=== PATIENT | female | born 1955 | race Caucasian/White ===

== ENCOUNTER 2021-12-27 14:32 | Outpatient (CLI) | payer OTHER, SELFPAY ==
--- NOTE | 2021-12-27 15:00 | CRLHL7_ITS ---
For Patients: As a result of the Century Cures Act, medical imaging exams and procedure reports are released immediately into your electronic medical record. You may view this report before your referring provider. If you have questions, please contact your health care provider. BILATERAL SCREENING MAMMOGRAM WITH COMPUTER-AIDED DETECTION AND TOMOSYNTHESIS TECHNIQUE: CC and MLO views were obtained. These mammographic images have been obtained using full-field digital technique. These mammographic images were interpreted with the benefit of computer-aided detection. Breast Tomosynthesis was used in this interpretation. COMPARISON FILM: 11/14/20, 12/01/19, 11/04/18. FINDINGS: There are scattered areas of fibroglandular density IMPRESSION: There is no radiographic evidence for malignancy. ASSESSMENT: BI-RADS Category 1: Negative RECOMMENDATION: Routine screening mammogram in 1 year. A lay language report of this examination will be provided to the patient. Aashsih Maldonado M.D. Diagnostic Radiologist [email or web address] BRYAN/Dictated by: Aashish Maldonado MD @ 12/28/2021 8:46:00 AM (Electronically Signed)
== END 2021-12-27 14:33 | disposition home or self-care (01) ==
PROVIDERS: PCP Family Medicine; Visit Provider Family Medicine
DX: Z12.31 Encounter for screening mammogram for malignant neoplasm of breast (principal)
CPT/HCPCS: 77063; 77067

== ENCOUNTER 2022-06-19 08:57 | Outpatient (CLI) | payer MEDICARE, SELFPAY | END 2022-06-19 08:58 | disposition home or self-care (01) | PROVIDERS: PCP Family Medicine; Visit Provider Family Medicine | DX: Z00.00 Encounter for general adult medical examination without abnormal findings (principal); R10.12 Left upper quadrant pain; E78.5 Hyperlipidemia, unspecified; R53.83 Other fatigue; K76.9 Liver disease, unspecified; Z78.0 Asymptomatic menopausal state | CPT/HCPCS: 80053; 80061; 82150; 83690 ==

== ENCOUNTER 2022-07-01 08:24 | Outpatient (CLI) | payer MEDICARE, SELFPAY ==
--- NOTE | 2022-07-01 09:00 | CRLHL7_ITS ---
For Patients: As a result of the Century Cures Act, medical imaging exams and procedure reports are released immediately into your electronic medical record. You may view this report before your referring provider. If you have questions, please contact your health care provider. Indication: L. upper quad pain, L. kidney cyst, Liver lesion Technique: Postcontrast CT abdomen and pelvis. 79 cc Isovue 370 intravenous contrast. Please note that all CT scans at this facility use dose modulation, iterative reconstruction, and/or weight-based dosing when appropriate to reduce radiation dose to as low as reasonably achievable. Comparison: 09/01/2019 Findings: The lung bases are clear. No free intraperitoneal air is noted. Benign 1 cm or less hypodensities throughout the liver similar. No suspicious intrahepatic mass. The gallbladder is absent. No biliary obstruction. The spleen is normal. Normal pancreas. Adrenal glands are unremarkable. There is a stable cyst within the upper pole of the left kidney measuring 1.6 cm. No hydronephrosis. No retroperitoneal or mesenteric adenopathy. Mild vascular calcifications. No bowel obstruction. Small hiatal hernia measuring 1.9 cm. The small bowel is unremarkable. Colonic diverticulosis. No diverticulitis. Bladder normal. Uterus unremarkable. No pelvic mass. There is a 2.1 centimeter right ovarian cyst. No pelvic or inguinal adenopathy. No abscess. No fracture. Multilevel degenerative disc disease and facet degeneration. Impression: Stable benign low-density lesions throughout the liver and stable left renal cortical cyst. Sigmoid diverticulosis. No diverticulitis. 2.1 cm right ovarian cyst which could be followed up by ultrasound in 1 year. Please note that all CT scans at this facility use dose modulation, iterative reconstruction, and/or weight-based dosing when appropriate to reduce radiation dose to as low as reasonably achievable. Dictated by Aashish Maldonado MD @ 07/01/2022 11:00:52 AM (Electronically Signed)
== END 2022-07-01 08:25 | disposition home or self-care (01) ==
PROVIDERS: PCP Family Medicine; Visit Provider Family Medicine
DX: R10.12 Left upper quadrant pain (principal); K57.30 Diverticulosis of large intestine without perforation or abscess without bleeding; N83.201 Unspecified ovarian cyst, right side; K76.9 Liver disease, unspecified; N28.1 Cyst of kidney, acquired
CPT/HCPCS: 74177; Q9967

== ENCOUNTER 2022-07-10 14:34 | Outpatient (CLI) | payer MEDICARE, SELFPAY ==
--- NOTE | 2022-07-10 15:00 | CRLHL7_ITS ---
For Patients: As a result of the Century Cures Act, medical imaging exams and procedure reports are released immediately into your electronic medical record. You may view this report before your referring provider. If you have questions, please contact your health care provider. DXA BONE MINERAL DENSITY STUDY, 07/10/2022 Reason for exam: Screening. Current height (inches): 64.0 Weight (lbs.): 155.0 Menopause age: 54 Ethnicity: White 1. Have you had a previous hip or vertebral fracture? No. 2. Have you had any fractures during your adult life which did not result from significant trauma (e.g., auto accident)? No. 3. Did either of your parents have a hip fracture? No. 4. Do you smoke? No. 5. Have you ever taken Glucocorticoids? No. 6. Do you have rheumatoid arthritis? No. 7. Do you have secondary osteoporosis? No. 8. Do you drink 3 or more alcoholic drinks per day? No. 9. Are you being treated for osteoporosis? No. 10. Have you ever taken any of the following medications: Actonel, Evista, Fosamax, Miacalcin, Reclast, Boniva, Forteo, HRT (i.e., estrogen/hormone therapy), Protelos, Prolia, Vitamin D, Calcium, other ??? please specify. ANSWER: Yes; vitamin D, calcium. 11. Do you have any of the following medical conditions: Anorexia or bulimia, asthma or emphysema, end stage renal disease, hyperparathyroidism, any seizure disorders, cancer, inflammatory bowel diseases, hysterectomy, other ??? please specify. ANSWER: No. 12. What was your maximum height (inches)? 65. 13. Do you perform weightbearing exercise regularly? No. 14. Do you regularly consume dairy products? Yes. 15. Do you drink caffeinated beverages? Yes. 16. At what age did your period start? 15. 17. Are you premenopausal? No. 18. How many full-term pregnancies have you had? 2. 19. Have you ever missed your period for more than 6 months in a row (not including or menopause)? No. TECHNIQUE: Bone mineral density study was performed using the [employer]. FINDINGS: The results of the study expressed as bone mineral density (BMD) are as follows: Lumbar Spine L1, L3 to L4: BMD: 1.048 g/cm2. T-score: 0.0. Z-score: 1.8. Neck Left: BMD: 0.714 g/cm2. T-score: -1.2. Z-score: 0.3. Right: BMD: 0.691 g/cm2. T-score: -1.4. Z-score: 0.1. Total Left: BMD: 0.999 g/cm2. T-score: 0.5. Z-score: 1.7. Right: BMD: 0.897 g/cm2. T-score: -0.4. Z-score: 0.9. IMPRESSION: Osteopenia. FRAX 10-year Fracture Risk Major Osteoporotic Fracture: 8.7% Hip Fracture: 0.9% Reported Risk Factors: [place] () Neck BMD = 0.691, BMI = 26.6 RAYNE POLK M.D. Diagnostic/Breast Radiologist [email or web address] Transcribed: 6:[address]/Dictated by: Rayne Polk MD @ 07/10/2022 3:29:00 PM (Electronically Signed)
== END 2022-07-10 14:35 | disposition home or self-care (01) ==
LOC: RAD 14:35
PROVIDERS: PCP Family Medicine; Visit Provider Family Medicine
DX: Z13.820 Encounter for screening for osteoporosis (principal); M85.89 Other specified disorders of bone density and structure, multiple sites; Z78.0 Asymptomatic menopausal state
CPT/HCPCS: 77080

== ENCOUNTER 2022-07-11 08:25 | Outpatient (CLI) | payer MEDICARE, SELFPAY ==
--- NOTE | 2022-07-11 08:45 | CRLHL7_ITS ---
For Patients: As a result of the Century Cures Act, medical imaging exams and procedure reports are released immediately into your electronic medical record. You may view this report before your referring provider. If you have questions, please contact your health care provider. INDICATION: Follow up right ovarian cysts. TECHNIQUE: Transabdominal and transvaginal pelvic ultrasound. COMPARISON: Correlation is made with an abdominopelvic CT July 01, 2022. FINDINGS: The uterus measures 6.0 x 3.3 x 1.9 cm. The endometrial stripe measures 2.6 mm transvaginally. The right ovary measures 4.8 x 3.8 x 2.7 cm. The right ovary contains 2 small well defined cysts 1 of which measures 1.3 x 1.1 x 1.7 cm and the other measuring 1.3 x 1.7 x 1.7 cm. The left ovary measures 2.3 x 1.2 x 1.7 cm. Blood flow is documented in the ovaries both arterial and venous. No free pelvic fluid. IMPRESSION: 1. Two small right ovarian follicular cysts. 2. No solid adnexal mass. 3. Endometrial stripe of 2.6 mm. Dictated by Mariano Mckoy MD @ 07/11/2022 10:28:44 AM (Electronically Signed)
== END 2022-07-11 08:26 | disposition home or self-care (01) ==
LOC: US 08:25
PROVIDERS: PCP Family Medicine; Visit Provider Family Medicine
DX: N83.201 Unspecified ovarian cyst, right side (principal); R93.89 Abnormal findings on diagnostic imaging of other specified body structures; Z13.820 Encounter for screening for osteoporosis; M85.89 Other specified disorders of bone density and structure, multiple sites
CPT/HCPCS: 76830; 76856; 93976

== ENCOUNTER 2022-07-16 10:30 | Outpatient (CLI) | payer MEDICARE, SELFPAY | END 2022-07-16 10:31 | disposition home or self-care (01) | LOC: NFLDREF 07-17 01:05 | PROVIDERS: PCP Family Medicine; Referring Provider Family Medicine; Visit Provider Family Medicine | DX: M85.80 Other specified disorders of bone density and structure, unspecified site (principal) | CPT/HCPCS: 82306 ==

== ENCOUNTER 2022-12-30 09:33 | Outpatient (CLI) | payer MEDICARE, SELFPAY ==
--- NOTE | 2022-12-30 10:15 | CRLHL7_ITS ---
For Patients: As a result of the Cures Act, medical imaging exams and procedure reports are released immediately into your electronic medical record. You may view this report before your referring provider. If you have questions, please contact your health care provider. BILATERAL SCREENING MAMMOGRAM WITH COMPUTER-AIDED DETECTION AND TOMOSYNTHESIS TECHNIQUE: CC and MLO views were obtained. These mammographic images have been obtained using full-field digital technique. These mammographic images were interpreted with the benefit of computer-aided detection. Breast Tomosynthesis was used in this interpretation. COMPARISON FILM: 12/27/21, 12/12/20, 12/01/19. FINDINGS: There are scattered areas of fibroglandular density IMPRESSION: There is no radiographic evidence for malignancy. ASSESSMENT: BI-RADS Category 1: Negative RECOMMENDATION: Routine screening mammogram in 1 year. A lay language report of this examination will be provided to the patient. Aashish Maldonado M.D. Diagnostic Radiologist [email or web address] Transcribed: 1:34 p.bree caraballo/Dictated by: Aashish Maldonado MD @ 12/30/2022 12:13:00 PM (Electronically Signed)
== END 2022-12-30 09:34 | disposition home or self-care (01) ==
LOC: MAMMO 09:35
PROVIDERS: PCP Family Medicine; Visit Provider Family Medicine
DX: Z12.31 Encounter for screening mammogram for malignant neoplasm of breast (principal)
CPT/HCPCS: 77063; 77067

== ENCOUNTER 2024-01-13 08:51 | Outpatient (CLI) | payer MEDICARE, SELFPAY ==
--- NOTE | 2024-01-13 09:15 | CRLHL7_ITS ---
For Patients: As a result of the Century Cures Act, medical imaging exams and procedure reports are released immediately into your electronic medical record. You may view this report before your referring provider. If you have questions, please contact your health care provider. BILATERAL SCREENING MAMMOGRAM WITH COMPUTER-AIDED DETECTION AND TOMOSYNTHESIS TECHNIQUE: CC and MLO views were obtained. These mammographic images have been obtained using full-field digital technique. These mammographic images were interpreted with the benefit of computer-aided detection. Breast tomosynthesis was used in this interpretation. COMPARISON FILM: 12/30/22, 12/27/21, 12/12/20. FINDINGS: There are scattered areas of fibroglandular density. IMPRESSION: There is no radiographic evidence for malignancy. ASSESSMENT: BI-RADS Category 1: Negative RECOMMENDATION: Routine screening mammogram in 1 year. A lay language report of this examination will be provided to the patient. AASHISH WAGNER M.D. Diagnostic Radiologist [email or web address] Transcribed: 1:[address]/Dictated by: Aashish Wagner MD @ 01/19/2024 9:53:00 AM (Electronically Signed)
== END 2024-01-13 08:52 | disposition home or self-care (01) ==
LOC: MAMMO 08:52
PROVIDERS: PCP Family Medicine; Visit Provider Family Medicine
DX: Z12.31 Encounter for screening mammogram for malignant neoplasm of breast (principal)
CPT/HCPCS: 77063; 77067

== ENCOUNTER 2025-01-13 08:48 | Outpatient (CLI) | payer MEDICARE, SELFPAY ==
--- NOTE | 2025-01-13 09:15 | CRLHL7_ITS ---
For Patients: As a result of the Century Cures Act, medical imaging exams and procedure reports are released immediately into your electronic medical record. You may view this report before your referring provider. If you have questions, please contact your health care provider. INDICATION: BILATERAL SCREENING MAMMOGRAM, ASYMPTOMATIC 69 Y/O FEMALE COMPARISON: 01/13/2024, 12/30/2022, 12/27/2021 TECHNIQUE: Digital mammogram in CC and MLO projections including computer-aided detection (CAD) and tomosynthesis. BREAST COMPOSITION: There are scattered areas of fibroglandular density. FINDINGS: No suspicious findings. ASSESSMENT: BI-RADS 1 Negative RECOMMENDATION: Annual screening mammogram. A lay language report of this examination will be provided to the patient. Dictated by: Aashish Maldonado MD @ 01/13/2025 09:38:54 (Electronically Signed)
== END 2025-01-13 08:49 | disposition home or self-care (01) ==
LOC: MAMMO 08:49
PROVIDERS: PCP Family Medicine; Visit Provider Family Medicine
DX: Z12.31 Encounter for screening mammogram for malignant neoplasm of breast (principal)
CPT/HCPCS: 77063; 77067

== ENCOUNTER 2025-03-04 08:02 | Outpatient (CLI) | payer MEDICARE, SELFPAY | END 2025-03-04 08:03 | disposition home or self-care (01) | LOC: NFLDREF 03-10 13:35 | PROVIDERS: PCP Family Medicine; Referring Provider Family Medicine; Visit Provider Family Medicine | DX: E78.5 Hyperlipidemia, unspecified (principal); Z13.9 Encounter for screening, unspecified; M85.851 Other specified disorders of bone density and structure, right thigh; M85.852 Other specified disorders of bone density and structure, left thigh; R53.83 Other fatigue; R73.01 Impaired fasting glucose; M81.0 Age-related osteoporosis without current pathological fracture | CPT/HCPCS: 80053; 80061; 82306 ==

== ENCOUNTER 2025-03-17 10:07 | Outpatient (CLI) | payer MEDICARE, SELFPAY ==
--- NOTE | 2025-03-17 10:45 | CRLHL7_ITS ---
For Patients: As a result of the Century Cures Act, medical imaging exams and procedure reports are released immediately into your electronic medical record. You may view this report before your referring provider. If you have questions, please contact your health care provider. CLINICAL HISTORY: pelvic pain COMPARISON: 07/11/2022 TECHNIQUE: 2D pierre-scale ultrasound. In addition, color Doppler and spectral Doppler analysis was performed of the pelvis using a transabdominal and transvaginal approach. Transvaginal imaging performed to better visualize the endometrial stripe and ovaries. FINDINGS: The myometrium has a normal uniform echotexture. The uterus measures 7.9 x 2.0 x 3.3 cm. The endometrial lining appears normal and measures 5 mm in thickness. The right ovary measures 2.7 x 1.6 x 1.4 cm in size and the left ovary measures 2.3 x 1.2 x 1.7 cm. The ovaries demonstrate normal arterial and venous blood flow on color Doppler and spectral Doppler analysis. Multiple simple right ovarian/right paraovarian cysts are present, the largest 2 measure 2.8 x 2.7 x 2.6 cm and 2.1 x 2.3 x 1.6 cm. IMPRESSION: Multiple right ovarian/right paraovarian cysts measure up to 2.8 cm. Unremarkable left ovary. No torsion or excess pelvic free fluid Dictated by Aashish Maldonado MD @ 03/17/2025 11:29:30 AM (Electronically Signed)
== END 2025-03-17 10:08 | disposition home or self-care (01) ==
LOC: US 10:08
PROVIDERS: PCP Family Medicine; Visit Provider Family Medicine
DX: R10.23 Pelvic and perineal pain bilateral (principal); N83.201 Unspecified ovarian cyst, right side
CPT/HCPCS: 76830; 76856; 93976

== ENCOUNTER 2025-03-22 09:51 | Outpatient (CLI) | payer MEDICARE, SELFPAY | END 2025-03-22 09:52 | disposition home or self-care (01) | LOC: NFLDREF 09:53 | PROVIDERS: PCP Family Medicine; Visit Provider Obstetrics & Gynecology | DX: N94.89 Other specified conditions associated with female genital organs and menstrual cycle (principal); Z78.0 Asymptomatic menopausal state | CPT/HCPCS: 86304 ==